=== PATIENT | female | born 1980 | race African-American/Black ===

== ENCOUNTER → 2018-04-08 | Outpatient (CLI) | payer OTHER | LOC: M LRY 16:01 | DX: M79.631 Pain in right forearm (principal); M25.511 Pain in right shoulder | CPT/HCPCS: 73030; 96372 ==

== ENCOUNTER → 2018-04-30 | Outpatient (CLI) | payer OTHER ==
[~2018-04-30] MED LIST: CONRAY-43 43% 50ML VIAL (Q9960) As Ordered; PROHANCE 279.3MG/ML 5ML VIAL (A9576) As Ordered
== END ==
LOC: M RADPRO 06:23
DX: M25.511 Pain in right shoulder (principal); M65.811 Other synovitis and tenosynovitis, right shoulder; M19.011 Primary osteoarthritis, right shoulder
CPT/HCPCS: 23350